=== PATIENT | male | born 1950 | race Caucasian/White ===

== ENCOUNTER 2023-10-11 04:01 | Day surgery (SDC) | payer OTHER, BC ==
[2023-10-09 14:18] VITALS: BMI 25.9
[~2023-10-11 04:01] MED LIST: ACETAMINOPHEN 325 MG TABLET (FP) PO PRN
[2023-10-11] MEDS ORDERED: TETRACAINE 0.5% OPHTH SOLN 2 ML BOTTLE ONE (07:54)
[2023-10-11] MEDS ORDERED: POVIDONE-IODINE 5% OPHTHALMIC PREP 30 ML SOLUTION ONE (07:54)
[2023-10-11] MEDS ORDERED: LIDOCAINE HCL/PF 1% SDV 5ML VIAL ONE (07:54)
[2023-10-11] MEDS ORDERED: PHENYLEPHRINE/KETOROLAC 4 ML VIAL IO ONE (07:54)
[2023-10-11] MEDS ORDERED: KETOROLAC TROMETHAMINE 0.5% EYE DROP 1 DROP DROPS ONE (08:50)
[2023-10-11] MEDS ORDERED: TROPICAMIDE 1% OPHTH SOLN 15 ML BOTTLE ONE (08:50)
[2023-10-11] MEDS ORDERED: OFLOXACIN 0.3% OPHTHALMIC SOLUTION 5 ML BOTTLE ONE (08:50)
[2023-10-11] MEDS ORDERED: CYCLOPENTOLATE HCL 1% OPHTH SOLN 2 ML BOTTLE ONE (08:50)
[2023-10-11 08:55] VITALS: RESP 20
[2023-10-11] MEDS: CYCLOPENTOLATE HCL 1% OPHTH SOLN 2 ML BOTTLE OP SCH (09:15)
[2023-10-11] MEDS: KETOROLAC TROMETHAMINE 0.5% EYE DROP 1 DROP DROPS OP SCH (09:15)
[2023-10-11] MEDS: PHENYLEPHRINE 2.5% OPHTH SOLN 15 ML BOTTLE OP SCH (09:15)
[2023-10-11] MEDS: TROPICAMIDE 1% OPHTH SOLN 15 ML BOTTLE OP SCH (09:15)
[2023-10-11] MEDS: OFLOXACIN 0.3% OPHTHALMIC SOLUTION 5 ML BOTTLE OP SCH (09:15)
[2023-10-11] MEDS ORDERED: FENTANYL CITRATE/PF 50 MCG/ML VIAL ONE (10:47)
[2023-10-11] MEDS ORDERED: ONDANSETRON 4 MG/2 ML VIAL ONE (10:47)
[2023-10-11] MEDS: TETRACAINE 0.5% OPHTH SOLN 2 ML BOTTLE OD ONE ×2 (11:09)
[2023-10-11] MEDS: POVIDONE-IODINE 5% OPHTHALMIC PREP 30 ML SOLUTION OD ONE ×2 (11:10)
[2023-10-11] MEDS: LIDOCAINE HCL 1% PRESERVATIVE FREE - 30ML VIAL IO ONE ×2 (11:17)
[2023-10-11] MEDS: BSS (NA/CA/MG/K) BALANCED SALT SOLUTION OPHTH SOLN 15 ML BOTTLE IO ONE (11:20)
[2023-10-11] MEDS: CHONDROITIN SU A/HYALUR SOD 1 KIT IO ONE ×2 (11:21)
[2023-10-11] MEDS: PHENYLEPHRINE/KETOROLAC 4 ML VIAL IO ONE ×2 (11:24)
[2023-10-11 12:00] VITALS: BP 137/90; PULSE 57; TEMP 97.5
[2023-10-11] MEDS ORDERED: CHONDROITIN SU A/HYALUR SOD 1 KIT ONE (12:24)
== END 2023-10-11 12:15 | disposition home or self-care (01) ==
LOC: JASU-SURG 04:01
PROVIDERS: ATTEND Ophthalmology
PROC: 08RJ3JZ Replacement of Right Lens with Synthetic Substitute, Percutaneous Approach (ICD-10-PCS; principal; 2023-10-11 11:00)
DX: H26.9 Unspecified cataract (principal)
CPT/HCPCS: 66984; V2632; J1097

== ENCOUNTER 2023-10-24 03:50 | Day surgery (SDC) | payer OTHER, BC ==
[2023-10-20 15:16] VITALS: BMI 26.0
[2023-10-24] MEDS ORDERED: PHENYLEPHRINE/KETOROLAC 4 ML VIAL IO ONE (07:15)
[2023-10-24] MEDS ORDERED: LIDOCAINE HCL/PF 1% SDV 5ML VIAL ONE (07:15)
[2023-10-24] MEDS ORDERED: TETRACAINE 0.5% OPHTH SOLN 2 ML BOTTLE ONE (07:15)
[2023-10-24] MEDS ORDERED: BSS (NA/CA/MG/K) BALANCED SALT SOLUTION OPHTH SOLN 15 ML BOTTLE ONE (07:15)
[2023-10-24] MEDS ORDERED: POVIDONE-IODINE 5% OPHTHALMIC PREP 30 ML SOLUTION ONE (07:15)
[2023-10-24] MEDS ORDERED: KETOROLAC TROMETHAMINE 0.5% EYE DROP 1 DROP DROPS ONE (09:15)
[2023-10-24] MEDS ORDERED: PHENYLEPHRINE 2.5% OPTHALMIC DROP 2ML BOTTLE ONE (09:15)
[2023-10-24] MEDS ORDERED: CYCLOPENTOLATE HCL 1% OPHTH SOLN 2 ML BOTTLE ONE (09:16)
[2023-10-24] MEDS ORDERED: OFLOXACIN 0.3% OPHTHALMIC SOLUTION 5 ML BOTTLE ONE (09:16)
[2023-10-24] MEDS ORDERED: TROPICAMIDE 1% OPHTH SOLN 15 ML BOTTLE ONE (09:16)
[2023-10-24] MEDS: KETOROLAC TROMETHAMINE 0.5% EYE DROP 1 DROP DROPS OP SCH (09:25)
[2023-10-24] MEDS: TROPICAMIDE 1% OPHTH SOLN 15 ML BOTTLE OP SCH (09:25)
[2023-10-24] MEDS: CYCLOPENTOLATE HCL 1% OPHTH SOLN 2 ML BOTTLE OP SCH (09:25)
[2023-10-24] MEDS: PHENYLEPHRINE 2.5% OPHTH SOLN 15 ML BOTTLE OP SCH (09:25)
[2023-10-24] MEDS: OFLOXACIN 0.3% OPHTHALMIC SOLUTION 5 ML BOTTLE OP SCH (09:25)
[2023-10-24] MEDS: TETRACAINE 0.5% OPHTH SOLN 2 ML BOTTLE OD ONE ×2 (10:05→10:45)
[2023-10-24] MEDS: LIDOCAINE HCL 1% PRESERVATIVE FREE - 30ML VIAL IO ONE ×2 (10:06→10:58)
[2023-10-24] MEDS: BSS (NA/CA/MG/K) BALANCED SALT SOLUTION OPHTH SOLN 15 ML BOTTLE OD ONE ×2 (10:06→10:56)
[2023-10-24] MEDS: POVIDONE-IODINE 5% OPHTHALMIC PREP 30 ML SOLUTION OD ONE ×2 (10:06→10:47)
[2023-10-24] MEDS: EPINEPHrine 1:1,000 1,000 MCG/ML ML SQ ONE ×2 (10:07→11:05)
[2023-10-24] MEDS: CHONDROITIN SU A/HYALUR SOD 1 KIT IO ONE ×2 (10:07→11:00)
[2023-10-24] MEDS ORDERED: FENTANYL CITRATE/PF 50 MCG/ML VIAL ONE (10:32)
[2023-10-24] MEDS ORDERED: ONDANSETRON 4 MG/2 ML VIAL ONE (10:32)
[2023-10-24] MEDS: PHENYLEPHRINE/KETOROLAC 4 ML VIAL IO ONE (11:05)
[2023-10-24 11:34] VITALS: RESP 20
[2023-10-24 12:42] VITALS: BP 171/78; PULSE 50; TEMP 96.4
== END 2023-10-24 12:00 | disposition home or self-care (01) ==
LOC: JASU-SURG 03:50
PROVIDERS: ATTEND Ophthalmology
PROC: 08RK3JZ Replacement of Left Lens with Synthetic Substitute, Percutaneous Approach (ICD-10-PCS; principal; 2023-10-24 11:00)
DX: H26.9 Unspecified cataract (principal)
CPT/HCPCS: J1097; V2632